=== PATIENT | male | born 1935 | race Caucasian/White ===

== ENCOUNTER → 2023-11-02 12:25 | Outpatient (BNVA) | payer MEDICARE, OTHER, SELFPAY | PROVIDERS: Referring Provider Internal Medicine; Visit Provider Dermatology | DX: D48.5 Neoplasm of uncertain behavior of skin (principal); L57.0 Actinic keratosis; D22.39 Melanocytic nevi of other parts of face; L82.1 Other seborrheic keratosis; L91.8 Other hypertrophic disorders of the skin | CPT/HCPCS: 11102; 17000; 99203 ==

== ENCOUNTER 2024-03-23 10:59 | Emergency (ER) | payer MEDICARE, OTHER, SELFPAY ==
[2024-03-23] VITALS (10 sets, daily range): BP systolic 115–155; BP diastolic 65–100; PULSE 86–99; RESP 16–22; TEMP 36.8; O2SAT 93–95; BMI 26.6
--- NOTE | 2024-03-23 10:59 | ECG_ITS ---
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 Measurements Intervals [place] Rate: 91 P: 20 WA: 208 QRS: 74 QRSD: 90 T: 49 QT: 334 QTc: 413 Interpretive Statements SINUS RHYTHM No previous ECG available for comparison Electronically Signed On 03-23-2024 14:42:27 CDT by Gerald Gooden M.D. [id number]
--- NOTE | 2024-03-23 11:00 | XR_ITS ---
WS: [id number] Examination: XR chest 1V portable [id number] Reason for Exam: cp Date: 03/23/2024 Comparison: None. Findings: Heart is not enlarged. The mediastinum is not widened. There is no pulmonary edema or pleural effusion. Minimal chronic changes are suspected in the lung bases without dense consolidation. XR/XR chest 1V portable [id number] Impression: No acute lung process is seen.
[2024-03-23 11:31] LABS: Basophils % 0.2 %; Eosinophils # 0.1 10^3/uL (0.0-0.8); Eosinophils % 0.8 %; Lymphocytes # 1.7 10^3/uL (0.8-4.8); Lymphocytes % 11.9 %; Mean Corpuscular HGB Conc 33.4 g/dL (30-55); Mean Corpuscular Hemoglobin 32.2 pg (27-33); Mean Corpuscular Volume 96.4 fl (82-101); Mean Platelet Volume 8.8 fL (7.4-10.4); Monocytes # 1.6 10^3/uL (0.2-0.9); Monocytes % 11.6 %; Neutrophils # 10.36 10^3/uL (1.8-7.7); Neutrophils % 75.1 %; Nucleated Red Blood Cells % 0 %; Platelet Count 250 10^3/cmm (157-399); Red Blood Count 3.94 10^6/uL (3.85-5.65); Red Cell Distribution Width 13.5 % (12.1-15.1); White Blood Count 13.81 10^3/uL (3.29-11.43)
[2024-03-23 11:46] LABS: INR 1.09 (0.8-1.2)
[2024-03-23 11:56] LABS: Troponin(5th) Baseline 20 ng/L (0-15)
--- NOTE | 2024-03-23 12:08 | ED_ITS ---
HPI - Chest Pain 2 General: Chief Complaint: Chest Pain Stated Complaint: CP Time Seen by Provider: 03/23/24 11:50 Source: patient Mode of arrival: ambulatory Limitations: no limitations History of Present Illness: 89-year-old male states he has been havi ng a sharp left-sided chest pain since this morning. He states that the pain is a sharp pain denies any pressure pain patient denies any nausea shortness of breath or diaphoresis. Patient denies any worsening improving factors states he did take an old nitro at home with no relief. Associated symptoms: Deny abdominal pain, dyspnea, fever(s), nausea or vomiting Related Data Home Medications Medication Instructions Recorded Confirmed amlodipine 5 mg tablet 5 mg PO QAM 03/23/24 03/23/24 clopidogrel 75 mg tablet 75 mg PO DAILY 03/23/24 03/23/24 finasteride 5 mg tablet 5 mg PO DAILY 03/23/24 03/23/24 fluticasone 250 mcg-salmeterol 50 1 inh inhalation BID 03/23/24 03/23/24 mcg/dose blistr powdr for inhalation gemfibrozil 600 mg tablet 600 mg PO BID 03/23/24 03/23/24 lansoprazole 30 mg capsule,delayed 30 mg PO DAILY 03/23/24 03/23/24 release levothyroxine 100 mcg tablet 100 mcg PO DAILY 03/23/24 03/23/24 lisinopril 10 1 tab PO DAILY 03/23/24 03/23/24 mg-hydrochlorothiazide 12.5 mg tablet magnesium oxide 400 mg (241.3 mg 400 mg PO DAILY 03/23/24 03/23/24 magnesium) tablet (MagOx) omega 9-xol-lkw-fish oil 1,000 mg 1 cap PO BID 03/23/24 03/23/24 (120 mg-180 mg) capsule (Fish Oil) rosuvastatin 10 mg tablet 10 mg PO DAILY 03/23/24 03/23/24 tamsulosin 0.4 mg capsule 0.4 mg PO DAILY 03/23/24 03/23/24 Allergies Allergy/AdvReac Type Severity Reaction Status Date / Time procaine [From Novocain] Allergy Intermediate ALGY-Hives Verified 03/23/24 11:42 Review of Systems 2 Const: Denies: fever(s), chills, body aches or change in appetite ENMT: Denies: throat pain or dental pain Card: Reports: chest pain Resp: Denies: dyspnea GI: Denies: abdominal pain, nausea, vomiting or diarrhea : Denies: dysuria Musc: Denies: neck pain or back pain Skin/Breast: Denies: rash Neuro: Denies: headache(s) Physical Exam 2 Const: COMMON NORMALS: no acute distress, patient oriented x3 and healthy appearing HENMT: COMMON NORMALS: normocephalic and atraumatic HEAD & SCALP: n ormocephalic and atraumatic Eye: COMMON NORMALS: Equal, round and reactive pupils present and EOMs intact bilaterally PUPIL: Yes Equal, round and reactive pupils present Neck/C-Spine: COMMON NORMALS: full ROM and supple Chest: COMMONS NORMALS: normal inspection of the chest and normal palpation of entire chest wall Resp: COMMON NORMALS: normal respiratory effort, No retractions, No use of accessory muscles and clear to auscultation bilaterally AUSCULTATION: clear to auscultation bilaterally Cardio: COMMON NORMALS: regular rate, regular rhythm and No murmurs present (Cardio) RATE: regular rate RHYTHM: regular rhythm GI: COMMON NORMALS: Normal to inspection, nondistended, normoactive bowel sounds present, Soft to palpation, non-tender and no masses PALPATION: Yes Soft to palpation Extremity: COMMON NORMALS: normal to inspection and full ROM Neuro: COMMON NORMALS: patient oriented x3, moves all extremities and no focal motor deficits Psych: COMMON NORMALS: mental status grossly normal, Normal thought process present and cooperative THOUGHT PROCESS: Normal thought process present Skin: COMMON NORMALS: no rashes or lesions noted and no wounds GENERAL SKIN EXAM: no rashes or lesions noted Course 2 Vital Signs: Vital signs: Vital Signs Temperature 98.3 F 03/23/24 11:39 Pulse Rate 86 03/23/24 14:29 Respiratory Rate 16 03/23/24 14:28 Blood Pressure 128/85 03/23/24 14:29 Pulse Oximetry 95 03/23/24 14:29 Oxygen Delivery Me thod Room Air 03/23/24 14:28 MDM - Chest Pain Medical Decision Making Patient presents here with chest pain is atypical in nature repeat and initial troponins here are negative EKG is negative D-dimer is negative he has no signs of ACS no signs of dissection or pulmonary embolism he is stable for discharge we will get him cardiology follow-up he is to return if worsening he understands agrees to plan Medical Records I reviewed the patient's medical records. Lab Data I reviewed the patient's lab results. 03/23/24 11:26 03/23/24 11:26 Radiology Impressions Chest X-Ray 03/23/24 11:00 Impression: No acute lung process is seen. Laboratory Results WBC 13.81 10^3/uL (3.29-11.43) H 03/23/24 11:26 RBC 3.94 10^6/uL (3.85-5.65) 03/23/24 11:26 Hgb 12.70 g/dL (11.27-16.99) 03/23/24 11:26 Hct 38.0 % (37-53) 03/23/24 11:26 MCV 96.4 fl (82-101) 03/23/24 11:26 MCH 32.2 pg (27-33) 03/23/24 11:26 MCHC 33.4 g/dL (30-55) 03/23/24 11:26 RDW 13.5 % (12.1-15.1) 03/23/24 11:26 Plt Count 250 10^3/cmm (157-399) 03/23/24 11:26 MPV 8.8 fL (7.4-10.4) 03/23/24 11:26 Neut % (Auto) 75.1 % 03/23/24 11:26 Lymph % (Auto) 11.9 % 03/23/24 11:26 [place] % (Auto) 11.6 % 03/23/24 11:26 Eos % (Auto) 0.8 % 03/23/24 11:26 Baso % (Auto) 0.2 % 03/23/24 11:26 Neut # (Auto) 10.36 10^3/uL (1.8-7.7) H 03/23/24 11:26 Lymph # (Auto) 1.7 10^3/uL (0.8-4.8) 03/23/24 11:26 [place] # (Auto) 1.6 10^3/uL (0.2-0.9) H 03/23/24 11:26 Eos # (Auto) 0.1 10^3/uL (0.0-0.8) 03/23/24 11:26 Baso # (Auto) 0.0 10^3/uL (0.0-0.1) 03/23/24 11:26 Nucleated RBC % (auto) 0 % 03/23/24 11:26 Nucleated RBCs # 0.0 /100WBC 03/23/24 11:26 PT 14.40 SECONDS (12.1-14.9) 03/23/24 11:26 INR 1.09 (0.8-1.2) 03/23/24 11:26 D-Dimer 0.47 ug/mLFEU (0-0.59) 03/23/24 11:26 Sodium 137 mmol/L (136-145) 03/23/24 11:26 Potassium 5.0 mmol/L (3.5-5.1) 03/23/24 11: Chloride 100 mmol/L (98-107) 03/23/24 11:26 Carbon Dioxide 23 mmol/L (22-29) 03/23/24 11:26 Anion Gap 20.0 (5-19) H 03/23/24 11:26 BUN 34 mg/dL (8-23) H 03/23/24 11:26 Creatinine 1.1 mg/dL (0.7-1.2) 03/23/24 11:26 GFR Calculation Not Reportable 03/23/24 11:26 Glucose 102 mg/dL (65-115) 03/23/24 11:26 Calculated Osmolality 292 mOsm/kg (285-295) 03/23/24 11:26 Calcium 9.1 mg/dL (8.5-10.5) 03/23/24 11:26 Total Bilirubin 0.4 mg/dL (0.15-1.2) 03/23/24 11:26 AST 20 U/L (0-40) 03/23/24 11:26 ALT 16 U/L (0-41) 03/23/24 11:26 Alkaline Phosphatase 59 U/L (40-130) 03/23/24 11:26 Troponin T Baseline 20 ng/L (0-15) H 03/23/24 11:26 Troponin T 120 Minute 18.77 ng/L (0-15) H 03/23/24 13:27 Delta Troponin T -1.23 ABS# (0-10) L 03/23/24 13:27 Total Protein 7.1 g/dL (6.6-8.7) 03/23/24 11:26 Albumin 4.4 g/dL (3.5-5.2) 03/23/24 11:26 Globulin 2.7 g/dL (1.3-4.6) 03/23/24 11:26 Lipase 38 U/L (13-60) 03/23/24 11:26 All radiology interpretation(s) finalized by discharge EKG Data EKG 1: I personally reviewed and interpreted this EKG as follows: EKG interpretation date: 03/23/24 EKG interpretation time: 10:59 Interpretation: nsr hr [address] or t wave abnormalities qrs 90 qtc 383 EKG 2: I personally reviewed and interpreted this EKG as follows: EKG interpretation date: 03/23/24 EKG interpretation time: 12:59 Interpretation: nsr hr [address] elevation qrs 94 qtc 396 Discharge Plan Discharge Patient Disposition: Home Clinical Impression: Chest pain Condition: Stable Prescriptions: No Action fluticasone propion-salmeterol 250-50 mcg/dose blister with device 1 inh INHALATION BID clopidogrel 75 mg tablet 75 mg PO DAILY amlodipine 5 mg tablet 5 mg PO QAM levothyroxine 100 mcg tablet 100 mcg PO DAILY MagOx 400 mg (241.3 mg magnesium) Tablet 400 mg PO DAILY tamsulosin 0.4 mg capsule 0.4 mg PO DAILY gemfibrozil 600 mg tablet 600 mg PO BID lansoprazole 30 mg capsule,delayed release(DR/EC) 30 mg PO DAILY lisinopril-hydrochlorothiazide 10-12.5 mg tablet 1 tab PO DAILY finasteride 5 mg tablet 5 mg PO DAILY rosuvastatin 10 mg tablet 10 mg PO DAILY Fish Oil 1,000 mg (120 mg-180 mg) Capsule 1 cap PO BID Discharge Orders: Discharge ED (Routine); Ordered 03/23/24 Ordered By: Campos Xie Discharge Diet: Advance as tolerated Discharge Activity: Resume usual activity Patient Instructions: Chest Pain (ED) Coding Level of Care Code ED Material Planner for Catrachito Marquez
[2024-03-23] MEDS: aspirin 81 mg Chew Tablet 324 MG PO (12:15)
--- NOTE | 2024-03-23 12:17 | PC.NURSE ---
on environmental monitoring technician telemetry.
[2024-03-23 12:27] LABS: D Dimer 0.47 ug/mLFEU (0-0.59)
[2024-03-23 12:29] LABS: Alanine Aminotransferase 16 U/L (0-41); Albumin Level 4.4 g/dL (3.5-5.2); Alkaline Phosphatase 59 U/L (40-130); Aspartate Amino Transferase 20 U/L (0-40); Calcium 9.1 mg/dL (8.5-10.5); Carbon Dioxide 23 mmol/L (22-29); Creatinine Clr Calc Pharmacy 50.2421; Globulin 2.7 g/dL (1.3-4.6); Glucose 102 mg/dL (65-115); Lipase 38 U/L (13-60); Total Bilirubin 0.4 mg/dL (0.15-1.2); Total Protein 7.1 g/dL (6.6-8.7)
[2024-03-23 12:51] LABS: Blood Urea Nitrogen 34 mg/dL (8-23); Chloride 100 mmol/L (98-107); Osmolality Calculated 292 mOsm/kg (285-295); Sodium 137 mmol/L (136-145)
--- NOTE | 2024-03-23 12:59 | ECG_ITS ---
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 Measurements Intervals [place] Rate: 94 P: 21 WI: 219 QRS: 50 QRSD: 94 T: 38 QT: 344 QTc: 431 Interpretive Statements SINUS RHYTHM WITH FIRST DEGREE AV BLOCK LOW QRS VOLTAGE IN PRECORDIAL LEADS [QRS DEFLECTION < 1.0 mV IN CHEST LEADS] Compared to ECG 03/23/2024 10:59:19 First degree AV block now present Low QRS voltage now present Electronically Signed On 03-23-2024 14:45:27 CDT by Gerald Gooden M.D. [id number]
[2024-03-23 13:49] LABS: Troponin 5 2HR 18.77 ng/L (0-15)
[2024-03-23 13:54] LABS: Troponin 5 2HR Delta -1.23 ABS# (0-10)
[2024-03-23] MEDS: HYDROcodone-acetaminophen 5-325 mg Tablet 1 TAB PO (14:18)
--- NOTE | 2024-03-23 17:44 | DCPLANNER ---
message heart care for er f/u
== END 2024-03-23 14:34 | disposition home or self-care (01) ==
PROVIDERS: Emergency Provider Emergency Medicine
DX: R07.9 Chest pain, unspecified (principal); Z79.02 Long term (current) use of antithrombotics/antiplatelets
CPT/HCPCS: 36415; 71045; 80053; 83690; 84484; 85025; 85378; 85610; 93005; 99285

== ENCOUNTER 2024-04-27 08:56 | Outpatient (CLI) | payer MEDICARE, OTHER, SELFPAY ==
[2024-04-27 10:12] VITALS: BMI 26.9
--- NOTE | 2024-04-27 10:12 | ECG_ITS ---
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 Interpretive Statements LEXISCAN SESTAMIBI STRESS TEST Procedure: At the baseline, the blood pressure was 129/86 mmHg with a heart rate of 81bpm. The electrocardiogram showed normal sinus rhythm, normal axis with normal ST and T's. The Lexiscan was infused over a period of 20 seconds. A total of 0.4 mg of Lexiscan was infused. The stress phase was continued for a total of 5 minutes. Heart rate was at the end of stress phase was 96 bpm and a blood pressure of 114/71 mmHg. The EKG at the peak infusion revealed normal sinus rhythm with no significant ST-T wave changes. Sestamibi was injected 20 seconds after the Lexiscan infusion. Blood pressure at the end of recovery phase was 125/75 mmHg with a heart rate of 99 bpm. Conclusion: 1. Normal EKG response to Lexiscan infusion 2. No Lexiscan induced chest pain or cardiac arrhythmia. 3. Normal blood pressure and heart rate response. 4. Sestamibi/sestamibi perfusion scan pending; see separate report. Electronically Signed On 04-28-2024 19:42:56 CDT by Gerald Gooden M.D. [id number]
--- NOTE | 2024-04-27 10:13 | NMCV_ITS ---
NM maylin perf SPECT r/s* [id number] Bossman Tong Age: 89 Gender: M : 1935 Exam Date: 04/27/2024 10:13 Ordering Phys: Blanca Justin MD Technologist: TITA Hollis Exam Location: [facility] Indications: cp STRESS TEST Please see separate stress test report in [facility] for full findings IMAGE PROTOCOL Rest/Stress 1 Lexiscan Day Radiopharmaceutical Dose (mCi) Administration Site Administered by Rest: Tc-99m 10.7 IV Lorie Hair, SOCIAL SCIENCES CHAIR Sestamibi Stress:Tc-99m 32.8 IV Lorie Whitegle, SOCIAL SCIENCES CHAIR Sestamibi Rest: 27-Apr-2024 60 Discovery 630 Stress: 27-Apr-2024 30 Discovery 630 0.4mg Lexiscan. Images obtained in supine and prone position. SPECT RESULTS Technical Quality: Good Raw Data Analysis: Normal Image Corrections: No attenuation or motion correction applied Summed Stress Score: 0 Summed Rest Score: 0 Summed Difference Score: 0 PERFUSION FINDINGS Medium sized area of moderate perfusion defect noted in basal to mid inferior wall on the rest images which improved significantly over stress images in the absence of wall motion abnormality and due to its improvement on stress images it is an artifact. This study is negative for ischemia. FUNCTIONAL RESULTS (calculated via Gated SPECT) Stress Image LV EF (%): 61 Stress EDV (mL):64 TID: 0.95 Stress ESV (mL):25 FUNCTIONAL FINDINGS: There is normal left ventricular systolic function. IMPRESSIONS Myocardial perfusion imaging is normal. Artur Aranda MD (Electronically Signed) Final Date: 27 April 2024 12:48 S
[2024-04-27] MEDS: regadenoson 0.4 Mg/5 ml Syringe IVP (10:55)
[2024-04-27 11:08] VITALS: BP 125/75; PULSE 99
== END 2024-04-27 08:57 | disposition home or self-care (01) ==
PROVIDERS: PCP Internal Medicine; Visit Provider Internal Medicine
DX: R07.9 Chest pain, unspecified (principal)
CPT/HCPCS: 36415; 78452; 93017; 96374; A9500; J2785

== ENCOUNTER → 2024-11-01 10:38 | Outpatient (BNVA) | payer MEDICARE, OTHER, SELFPAY | PROVIDERS: PCP Internal Medicine; Visit Provider Nurse Practitioner Family | DX: D22.39 Melanocytic nevi of other parts of face (principal); D22.4 Melanocytic nevi of scalp and neck; L82.1 Other seborrheic keratosis; L91.8 Other hypertrophic disorders of the skin; D22.5 Melanocytic nevi of trunk; L82.0 Inflamed seborrheic keratosis; Z78.9 Other specified health status; L53.8 Other specified erythematous conditions; L57.0 Actinic keratosis | CPT/HCPCS: 17000; 17110; 99213 ==

== ENCOUNTER 2025-06-08 08:26 | Outpatient (CLI) | payer MEDICARE, OTHER, SELFPAY ==
--- NOTE | 2025-06-08 08:35 | US_ITS ---
WS: [id number] THYROID ULTRASOUND REASON FOR EXAM: HYPOTHYROIDISM TECHNIQUE: Grayscale and Doppler ultrasound examination of the thyroid gland. FINDINGS: RIGHT: Right thyroid gland measures 7.3 cm x 3.7 cm x 3.3 cm. Right thyroid volume equals 42.6 ccm3. Diffuse inhomogeneity of the right lobe of the thyroid without discrete dominant nodule. There are areas of echogenicity with multiple regions of serpiginous and oval sonolucency. No calcifications are identified. The right lobe of the thyroid demonstrates significant vascularity. LEFT: Left thyroid gland measures 4.8 cm x 2.0 cm x 2.0 cm. Left thyroid volume equals 9.0 ccm3. Diffuse inhomogeneity of the left lobe of the thyroid without discrete dominant nodule. There are areas of echogenicity with multiple regions of lucency. No calcification identified. Left lobe of the thyroid demonstrates normal vascularity. Thyroid isthmus: 0.8 mm. 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 No findings suspicious for neoplasm. The appearance of the right lobe of the thyroid suggest the possibility of thyr oiditis.
== END 2025-06-08 08:27 | disposition home or self-care (01) ==
LOC: RAD 08:27
PROVIDERS: PCP Internal Medicine; Visit Provider Internal Medicine
DX: E03.9 Hypothyroidism, unspecified (principal); E04.9 Nontoxic goiter, unspecified; E07.89 Other specified disorders of thyroid
CPT/HCPCS: 76536